=== PATIENT | male | born 1995 ===

== ENCOUNTER 2017-09-09 19:05 | Emergency (ER) | payer SELFPAY ==
[2017-09-09 19:41] VITALS: RESP 16; TEMP 98.6
[2017-09-09 19:45] LABS: BASO # 0.1 K/uL (0.0-0.2); BASO % 0.6 % (0.0-2.0); HEMATOCRIT 47.6 % (35.0-51.0); LYMPH # 1.4 K/uL (1.0-4.3); LYMPH % 13.6 % (20.0-40.0); MEAN CELL VOLUME 92.3 fl (80.0-94.0); MEAN CORPUSCULAR HEMOGLOBIN 31.3 pg (27.0-31.0); MEAN CORPUSCULAR HGB CONC 33.9 g/dL (33.0-37.0); MEAN PLATELET VOLUME 8.4 fl (7.2-11.7); MONO # 0.3 K/uL (0.0-0.8); MONO % 2.5 % (0.0-10.0); NEUT # 8.7 K/uL (1.8-7.0); NEUT % 83.3 % (50.0-75.0); RED CELL DISTRIBUTION WIDTH 13.2 % (11.5-14.5); WHITE BLOOD COUNT 10.4 K/uL (4.8-10.8)
[2017-09-09 19:49] LABS: RBC URINE < 1 /hpf (0-3); URINE BILIRUBIN NEGATIVE (NEGATIVE); URINE BLOOD NEGATIVE (NEGATIVE); URINE COLOR YELLOW (YELLOW); URINE GLUCOSE (UA) NEG (Normal); URINE KETONE NEGATIVE (NEGATIVE); URINE LEUKOCYTE ESTERASE NEG Leu/uL (Negative); URINE PROTEIN NEGATIVE (NEGATIVE); URINE UROBILINOGEN 0.2-1.0 mg/dL (0.2-1.0); WBC URINE < 1 /hpf (0-5)
[2017-09-09 19:55] LABS: ALB/GLOB RATIO 1.6 (1.0-2.1); ALCOHOL SERUM 203 mg/dl (0-10); ALKALINE PHOSPHATASE 89 U/L (38-126); ALT/SGPT 45 U/L (21-72); AST/SGOT 55 U/L (17-59); BILIRUBIN,TOTAL 0.3 mg/dl (0.2-1.3); BLOOD UREA NITROGEN 9 mg/dl (9-20); CALCIUM 9.3 mg/dL (8.4-10.2); CARBON DIOXIDE 27 mmol/L (22-30); CHLORIDE 108 mmol/L (98-107); GFR AFRICAN-AMERICAN > 60; GLUCOSE,RANDOM 110 mg/dL (75-110); POTASSIUM 3.8 MMOL/L (3.6-5.0); SODIUM 148 mmol/l (132-148); TOTAL PROTEIN 7.6 G/DL (6.3-8.2)
[2017-09-09] MEDS ORDERED: Sodium Chloride 0.9% 1,000 ML IV STA (20:15)
--- NOTE | 2017-09-09 20:17 | CT ---
EXAM: CT Head Without Intravenous Contrast CLINICAL HISTORY: 22 years old, male; Signs and symptoms; Altered mental status/memory loss; Other: Poss substance abuse; Patient HX: Unobtainable; Additional info: AMS TECHNIQUE: Axial computed tomography images of the head/brain without intravenous contrast. All CT scans at this facility use one or more dose reduction techniques, viz.: automated exposure control; ma/kV adjustment per patient size (including targeted exams where dose is matched to indication; i.e. head); or iterative reconstruction technique. Coronal and sagittal reformatted images were created and reviewed. COMPARISON: No relevant prior studies available. FINDINGS: Brain: No intracranial hemorrhage. No mass. No definite edema. Ventricles: No hydrocephalus. Bones/joints: No acute fracture. Soft tissues: Unremarkable. Sinuses: No acute sinusitis. Mastoid air cells: No mastoid effusion. Orbits: Unremarkable as visualized. IMPRESSION: 1. No acute intracranial abnormality.
--- NOTE | 2017-09-09 21:02 | ED PDOC ---
HPI: Altered Mental Status Time Seen by Provider: 09/09/17 19:18 Chief Complaint (Nursing): Altered Mental Status Chief Complaint (Provider): Altered Mental Status History Per: Family () History/Exam Limitations: Intoxication Onset/Duration Of Symptoms: Mins (prior to arrival) Current Symptoms Are (Timing): Still Present Additional Complaint(s): 22 year old male who presents to the emergency department via EMS with for an evaluation after found him unresponsive prior to arrival. She also reported that patient has been drinking alcohol all day. PMD: none provided Past Medical History Reviewed: Historical Data, Nursing Documentation, Vital Signs Vital Signs: Last Vital Signs Temp 98.6 F 09/09/17 19:16 Pulse 95 H 09/09/17 19:16 Resp 16 09/09/17 19:16 BP 129/90 09/09/17 19:16 Pulse Ox 97 09/09/17 19:16 - Medical History PMH: No Chronic Diseases - Surgical History Surgical History: No Surg Hx - Family History Family History: States: Unknown Family Hx - Social History Current smoker - smoking cessation education provided: No Alcohol: > 2 Drinks/Day Drugs: Denies - Allergies Allergies/Adverse Reactions: Allergies Allergy/AdvReac Type Severity Reaction Status Date / Time Unobtainable Allergy Verified 09/09/17 19:15 Review of Systems Review Of Systems: ROS cannot be obtained secondary to pt's inabilty to answer questions. (AMS) Physical Exam - Reviewed Nursing Documentation Reviewed: Yes Vital Signs Reviewed: Yes - Physical Exam Appears: Positive for: Well, Non-toxic, No Acute Distress Head Exam: Positive for: ATRAUMATIC, NORMAL INSPECTION, NORMOCEPHALIC Skin: Positive for: Normal Color Eye Exam: Positive for: Normal appearance, EOMI, PERRL. Negative for: Nystagmus Neck: Positive for: Normal, Painless ROM, Supple. Negative for: Decreased ROM, Limited ROM Cardiovascular/Chest: Positive for: Regular Rate, Rhythm, Chest Non Tender Respiratory: Positive for: Normal Breath Sounds. Negative for: Decreased Breath Sounds, Wheezing, Respiratory Distress Neurologic/Psych: Positive for: Alert - Laboratory Results Result Diagrams: 09/09/17 19:38 09/09/17 19:38 - ECG O2 Sat by Pulse Oximetry: 97 (RA) Pulse Ox Interpretation: Normal Medical Decision Making Medical Decision Making: Initial Impression: Altered mental status in setting of alcohol abuse Initial Plan: * CT head without contrast * EKG * Alcohol serum * CMP * Drug screen, urine * CBC * NS 1,000ml IV per 1,000mls/hr * Accucheck * Urinary straight catheterization * Urinalysis Time: 2017 --CT head FINDINGS: Brain: No intracranial hemorrhage. No mass. No definite edema. Ventricles: No hydrocephalus. Bones/joints: No acute fracture. Soft tissues: Unremarkable. Sinuses: No acute sinusitis. Mastoid air cells: No mastoid effusion. Orbits: Unremarkable as visualized. IMPRESSION: 1. No acute intracranial abnormality. Scribe Attestation: Documented by Tressa Sibley, acting as a scribe for Laura Webb MD. Provider Scribe Attestation: All medical record entries made by the Scribe were at my direction and personally dictated by me. I have reviewed the chart and agree that the record accurately reflects my personal performance of the history, physical exam, medical decision making, and the department course for this patient. I have also personally directed, reviewed, and agree with the discharge instructions and disposition. Disposition - Clinical Impression Clinical Impression: Alcohol abuse, Cocaine abuse - Disposition Disposition: Routine/Home Disposition Time: 22:00 Condition: STABLE Instructions: Cocaine Abuse (ED), Alcohol Intoxication (ED) Forms: [employer] (Cape Verdean)
[2017-09-09 22:33] VITALS: BP 108/40; PULSE 84
--- NOTE | 2017-09-10 11:13 | CARD ---
APPROVED REPORT EKG Measurement Heart [id number] <Conclusion> Normal sinus rhythm Normal ECG
[2017-09-14 03:54] VITALS: O2SAT 97
== END 2017-09-09 22:34 | disposition home or self-care (01) ==
LOC: H.ER 19:05 → EDSEX 19:05 → H.ER 22:34
DX: F10.10 Alcohol abuse, uncomplicated (principal); F14.10 Cocaine abuse, uncomplicated
CPT/HCPCS: 70450; 80053; 81003; 82948; 85025; 93005; 96360; 99285; G0480; J7040

== ENCOUNTER 2017-09-26 01:41 | Emergency (ER) | payer SELFPAY ==
[2017-09-26] MEDS ORDERED: Ammonia 2% Inhalant ONE ×2 (01:51→04:44)
[2017-09-26 03:00] LABS: BASO # 0.1 K/uL (0.0-0.2); BASO % 0.6 % (0.0-2.0); EOS % 0.2 % (0.0-4.0); HEMATOCRIT 46.9 % (35.0-51.0); LYMPH # 1.1 K/uL (1.0-4.3); MEAN CELL VOLUME 91.7 fl (80.0-94.0); MEAN CORPUSCULAR HGB CONC 33.8 g/dL (33.0-37.0); MEAN PLATELET VOLUME 8.9 fl (7.2-11.7); MONO # 0.3 K/uL (0.0-0.8); MONO % 3.3 % (0.0-10.0); NEUT # 7.6 K/uL (1.8-7.0); NEUT % 83.9 % (50.0-75.0); NRBC % 0.1 % (0.0-0.0)
[2017-09-26] MEDS ORDERED: Sodium Chloride 0.9% 1,000 ML IV STA ×3 (03:11→04:10)
[2017-09-26 03:12] LABS: ALB/GLOB RATIO 1.7 (1.0-2.1); ALCOHOL SERUM 194 mg/dl (0-10); ALKALINE PHOSPHATASE 91 U/L (38-126); ALT/SGPT 43 U/L (21-72); AST/SGOT 52 U/L (17-59); BILIRUBIN,TOTAL 0.4 mg/dl (0.2-1.3); BLOOD UREA NITROGEN 12 mg/dl (9-20); CALCIUM 9.2 mg/dL (8.4-10.2); CARBON DIOXIDE 24 mmol/L (22-30); CHLORIDE 105 mmol/L (98-107); GFR AFRICAN-AMERICAN > 60; GLUCOSE,RANDOM 120 mg/dL (75-110); POTASSIUM 3.4 MMOL/L (3.6-5.0); SODIUM 141 mmol/l (132-148); TOTAL PROTEIN 7.5 G/DL (6.3-8.2)
[2017-09-26 03:20] LABS: RBC URINE 1 /hpf (0-3); URINE BACTERIA RARE (<OCC); URINE BILIRUBIN NEGATIVE (NEGATIVE); URINE BLOOD NEGATIVE (NEGATIVE); URINE COLOR STRAW (YELLOW); URINE GLUCOSE (UA) NEG (Normal); URINE KETONE NEGATIVE (NEGATIVE); URINE LEUKOCYTE ESTERASE NEG Leu/uL (Negative); URINE PROTEIN NEGATIVE (NEGATIVE); URINE UROBILINOGEN 0.2-1.0 mg/dL (0.2-1.0); WBC URINE 1 /hpf (0-5)
--- NOTE | 2017-09-26 04:06 | ED PDOC ---
HPI: Psych/Substance Abuse Time Seen by Provider: 09/26/17 02:02 Chief Complaint (Nursing): Substance Abuse Chief Complaint (Provider): Intoxicated ED Caveat: Intoxicated History Per: Patient History/Exam Limitations: intoxication Onset/Duration Of Symptoms: Mins (just prior to arrival) Current Symptoms Are (Timing): Still Present Additional Complaint(s): 22y/o male, brought in by EMS, for suspected substance abuse, onset just prior to arrival. Patient is responsive to pain, but is non verbal. Provider is unable to obtain any pertinent history or review of systems. [ End ] Past Medical History Reviewed: Historical Data, Nursing Documentation, Vital Signs, Unable To Obtain (intoxicated) Vital Signs: Last Vital Signs Temp 98.2 F 09/26/17 01:43 Pulse 84 09/26/17 01:43 Resp 15 09/26/17 01:43 BP 125/62 09/26/17 01:43 Pulse Ox 98 09/26/17 01:43 - Family History Family History: States: Unknown Family Hx - Allergies Allergies/Adverse Reactions: Allergies Allergy/AdvReac Type Severity Reaction Status Date / Time No Known Allergies Allergy Verified 09/26/17 04:22 Review of Systems ROS Statement: Except As Marked, All Systems Reviewed And Found Negative Review Of Systems: ROS cannot be obtained secondary to pt's inabilty to answer questions. (intoxication) Physical Exam - Reviewed Nursing Documentation Reviewed: Yes Vital Signs Reviewed: Yes - Physical Exam Appears: Positive for: Non-toxic, No Acute Distress Head Exam: Positive for: ATRAUMATIC Skin: Positive for: Normal Color, Warm Eye Exam: Positive for: Normal appearance, EOMI, PERRL ENT: Positive for: Normal ENT Inspection Neck: Positive for: Normal, Painless ROM, Supple Cardiovascular/Chest: Positive for: Regular Rate, Rhythm. Negative for: Murmur Respiratory: Positive for: Normal Breath Sounds. Negative for: Respiratory Distress Gastrointestinal/Abdominal: Positive for: Normal Exam, Soft. Negative for: Tenderness Back: Positive for: Normal Inspection Extremity: Positive for: Normal ROM. Negative for: Pedal Edema, Deformity Neurologic/Psych: Positive for: Other ( Patient is responsive to pain, but non verbal. ) - Laboratory Results Result Diagrams: 09/26/17 02:56 09/26/17 02:56 - ECG O2 Sat by Pulse Oximetry: 98 (RA) Pulse Ox Interpretation: Normal Medical Decision Making Medical Decision Making: Time: --02:03 Impression: --Intoxication, Possible Substance Abuse Plan: --ECG --Iv Fluids --Heplock Insertion --Accucheck --Dickinson Reassess --04:41 FINDINGS:CT Head Without Intravenous Contrast Brain: No intracranial hemorrhage. No mass. No definite edema. Ventricles: No hydrocephalus. Bones/joints: No acute fracture. Soft tissues: Unremarkable. Sinuses: No acute sinusitis. Mastoid air cells: No mastoid effusion. Orbits: Unremarkable as visualized. IMPRESSION: 1. No definite acute intracranial abnormality. --05:36 Patient is awake alert oriented x3. Provider spoke with patient at length due to the patient's presence for alcohol intoxication for second time in two weeks Patient to be discharged home accompanied by uncle. Scribe Attestation: Documented by Jabier Macdonald acting as a scribe for Koffi Doherty MD. Disposition - Clinical Impression Clinical Impression: Alcohol abuse - Patient ED Disposition Is Patient to be Admitted: No - Disposition Disposition: Routine/Home Disposition Time: 05:36 Condition: STABLE Instructions: Alcohol Intoxication (ED) Forms: [employer] (Finnish) Print Language: EQUATORIAL GUINEAN
--- NOTE | 2017-09-26 04:42 | CT ---
EXAM: CT Head Without Intravenous Contrast CLINICAL HISTORY: 22 years old, male; Signs and symptoms; Alteration of consciousness; Somnolence (drowsiness); Additional info: AMS TECHNIQUE: Axial computed tomography images of the head/brain without intravenous contrast. All CT scans at this facility use one or more dose reduction techniques, viz.: automated exposure control; ma/kV adjustment per patient size (including targeted exams where dose is matched to indication; i.e. head); or iterative reconstruction technique. Coronal and sagittal reformatted images were created and reviewed. COMPARISON: CT - HEAD W/O CONTRAST 2017-09-09 19:45 FINDINGS: Brain: No intracranial hemorrhage. No mass. No definite edema. Ventricles: No hydrocephalus. Bones/joints: No acute fracture. Soft tissues: Unremarkable. Sinuses: No acute sinusitis. Mastoid air cells: No mastoid effusion. Orbits: Unremarkable as visualized. IMPRESSION: 1. No definite acute intracranial abnormality.
[2017-09-26 05:06] LABS: VENOUS BLOOD GAS BASE EXCESS -2.9 mmol/L (0.0-2.0); VENOUS BLOOD GAS PCO2 47 mmHg (40-60); VENOUS BLOOD PH 7.31 (7.32-7.43)
[2017-09-26 05:36] VITALS: BP 111/55; PULSE 95; RESP 18; TEMP 98.5
[2017-09-26 05:46] VITALS: O2SAT 98
--- NOTE | 2017-09-27 11:27 | CARD ---
APPROVED REPORT EKG Measurement Heart [id number] <Conclusion> Normal sinus rhythm Nonspecific ST abnormality Abnormal ECG
== END 2017-09-26 05:37 | disposition home or self-care (01) ==
LOC: H.ER 01:41
DX: F10.129 Alcohol abuse with intoxication, unspecified (principal); Y90.6 Blood alcohol level of 120-199 mg/100 ml
CPT/HCPCS: 70450; 80053; 81003; 82803; 82948; 85025; 93005; 99284; G0480; J7040

== ENCOUNTER 2018-01-17 18:15 | Emergency (ER) | payer OTHER ==
[2018-01-17] MEDS ORDERED: Sodium Chloride 0.9% 1,000 ML IV STA (19:22)
[2018-01-17 20:09] LABS: VENOUS BLOOD GAS BASE EXCESS 3.5 mmol/L (0.0-2.0); VENOUS BLOOD GAS PCO2 35 mmHg (40-60); VENOUS BLOOD GAS PO2 22 mm/Hg (30-55); VENOUS BLOOD PH 7.49 (7.32-7.43)
[2018-01-17 20:22] LABS: BASO % 0.3 % (0.0-2.0); EOS % 0.6 % (0.0-4.0); LYMPH # 0.5 K/uL (1.0-4.3); LYMPH % 6.8 % (20.0-40.0); MEAN CELL VOLUME 89.5 fl (80.0-94.0); MEAN CORPUSCULAR HEMOGLOBIN 31.8 pg (27.0-31.0); MEAN CORPUSCULAR HGB CONC 35.5 g/dL (33.0-37.0); MONO # 0.7 K/uL (0.0-0.8); MONO % 9.6 % (0.0-10.0); NEUT # 6.5 K/uL (1.8-7.0); NEUT % 82.7 % (50.0-75.0); NRBC % 0.1 % (0.0-0.0); PLATELET COUNT 213 K/uL (130-400); RBC 5.03 Mil/uL (4.40-5.90); RED CELL DISTRIBUTION WIDTH 13.4 % (11.5-14.5); WHITE BLOOD COUNT 7.8 K/uL (4.8-10.8)
--- NOTE | 2018-01-17 20:23 | ED PDOC ---
HPI: Abdomen Time Seen by Provider: 01/17/18 19:21 Chief Complaint (Nursing): Abdominal Pain Chief Complaint (Provider): Abdominal pain History Per: Patient History/Exam Limitations: no limitations Onset/Duration Of Symptoms: Hrs (3am today) Outside of [place] travel?: No Current Symptoms Are (Timing): Still Present Quality Of Discomfort: Cramping Associated Symptoms: Fever, Chills, Vomiting, Diarrhea (watery, non bloody), Other (body aches, headache, sore throat, mild cough and generalized weakness) Additional Complaint(s): Srinivasan Horn is a 22 year old male, with no significant past medical history , who presents to the emergency department complaining of crampy abdominal pain associated with vomiting and diarrhea onset since 3:00 pm today. Patient reports intractable vomiting, with multiple episodes of non bloody watery diarrhea. Patient also reports fever, chills, headache, body aches, headache, sore throat, mild cough and generalized weakness. No known sick contacts, recent travel, or recent antibiotics. Patient is from [facility] and has been here for 7 yrs, with no regular MD. He denies any other medical complaints. PMD: None provided. Past Medical History Reviewed: Historical Data, Nursing Documentation, Vital Signs Vital Signs: Last Vital Signs Temp 98.0 F 01/17/18 22:02 Pulse 88 01/17/18 22:02 Resp 17 01/17/18 22:02 BP 101/53 L 01/17/18 22:02 Pulse Ox 95 01/17/18 22:02 - Medical History PMH: No Chronic Diseases - Surgical History Surgical History: No Surg Hx - Family History Family History: States: Unknown Family Hx - Social History Current smoker - smoking cessation education provided: No Alcohol: Social (on weekends) Drugs: Denies - Home Medications Home Medications: Ambulatory Orders Medication Instructions Recorded Dicyclomine [Bentyl] 20 mg PO BID PRN #30 tab 01/17/18 Ondansetron ODT [Zofran ODT] 1 odt PO Q6 PRN #20 odt 01/17/18 - Allergies Allergies/Adverse Reactions: Allergies Allergy/AdvReac Type Severity Reaction Status Date / Time No Known Allergies Allergy Verified 01/17/18 18:26 Review of Systems ROS Statement: Except As Marked, All Systems Reviewed And Found Negative Constitutional: Positive for: Fever, Chills, Weakness (generalized), Other ( body aches) ENT: Positive for: Throat Pain Respiratory: Positive for: Cough (mild) Gastrointestinal: Positive for: Vomiting, Abdominal Pain (crampy), Diarrhea ( watery non bloody) Neurological: Negative for: Headache Physical Exam - Reviewed Nursing Documentation Reviewed: Yes Vital Signs Reviewed: Yes - Physical Exam Appears: Positive for: Uncomfortable (febrile), In Acute Distress. Negative for : Well Head Exam: Positive for: ATRAUMATIC, NORMOCEPHALIC Skin: Positive for: Normal Color, Warm, Dry Eye Exam: Positive for: EOMI, PERRL, Conjunctival injection ENT: Positive for: Pharynx Is (clear). Negative for: Pharyngeal Erythema, Tonsillar Exudate Neck: Positive for: Painless ROM Cardiovascular/Chest: Positive for: Tachycardia. Negative for: Murmur Respiratory: Positive for: Normal Breath Sounds. Negative for: Wheezing, Respiratory Distress Gastrointestinal/Abdominal: Positive for: Soft, Tenderness (diffusely ). Negative for: Mass, Guarding, Rebound Back: Positive for: Normal Inspection. Negative for: Decreased ROM Extremity: Positive for: Normal ROM. Negative for: Deformity, Swelling Lymphatic: Negative for: Adenopathy Neurologic/Psych: Positive for: Alert, Oriented. Negative for: Motor/Sensory Deficits - Laboratory Results Result Diagrams: 01/17/18 20:16 01/17/18 20:16 - ECG O2 Sat by Pulse Oximetry: 100 (RA) Pulse Ox Interpretation: Normal Medical Decision Making Medical Decision Making: Initial Impression: Sepsis, dehydration, gastroenteritis. Differential includes but not limited to influenza, strep, electrolyte abnormality. Initial Plan: --Labs --Dextrose 5%-0.9% NS 500 ml 1,000 ml IV 150 mls/hr --Sodium Chloride 1,000 ml IV 2,000 mls/hr --Toradol 15 mg IVP --Tylenol 325mg tab 975 mg PO --Zofran ODT 4 mg PO --Reevaluation Ketones in ua. No emergently significant lab abnormalities 11p Pt feels better. Tolerating PO in ER. DW pt findings and plan of care. Will treat as gastroenteritis for now but strict instructions to f/u at clinic or [facility] in 48 hours if symptoms persist or worsen. Fluid hydration aggressively but slowly at home. Lane diet. Rx Bentyl, Zofran. Scribe Attestation: Documented by Too Chang, acting as a scribe for Laura Webb MD Provider Scribe Attestation: All medical record entries made by the Scribe were at my direction and personally dictated by me. I have reviewed the chart and agree that the record accurately reflects my personal performance of the history, physical exam, medical decision making, and the department course for this patient. I have also personally directed, reviewed, and agree with the discharge instructions and disposition. Disposition - Clinical Impression Clinical Impression: Vomiting and diarrhea, Abdominal pain Counseled Patient/Family Regarding: Studies Performed, Diagnosis, Need For Followup, Rx Given - Disposition Referrals: [facility] [Outside] ([facility]) Disposition: Routine/Home Disposition Time: 23:00 Condition: IMPROVED Prescriptions: Dicyclomine [Bentyl] 20 mg PO BID PRN #30 tab PRN Reason: abdominal pain Ondansetron ODT [Zofran ODT] 1 odt PO Q6 PRN #20 odt PRN Reason: Nausea/Vomiting Instructions: Acute Abdomen (Belly Pain), Viral Gastroenteritis Forms: [facility] ED School/Work Excuse Print Language: SETSWANA
[2018-01-17 20:34] LABS: ALB/GLOB RATIO 1.5 (1.0-2.1); ALBUMIN 4.5 g/dL (3.5-5.0); ALT/SGPT 58 U/L (21-72); AMYLASE 114 U/L (30-110); AST/SGOT 67 U/L (17-59); BLOOD UREA NITROGEN 20 mg/dl (9-20); CALCIUM 9.5 mg/dL (8.4-10.2); GFR AFRICAN-AMERICAN > 60; GFR NON-AFRICAN AMERICAN > 60; LIPASE 193 U/L (23-300)
[2018-01-17 20:42] LABS: INR 1.3 (0.9-1.2); PARTIAL THROMBOPLASTIN TIME 31.9 Seconds (25.6-37.1); PROTHROMBIN TIME 14.9 Seconds (9.8-13.1)
[2018-01-17] MEDS ORDERED: Dextrose 5%/0.9% NS 1,000 ML IV SCH (21:00)
[2018-01-17 21:17] LABS: BANDS 3 % (0-2); LYMPHOCYTE 9 % (20-50); MONOCYTE 6 % (0-10); NEUTROPHIL 82 % (42-75); PLATELET ESTIMATE NORMAL (NORMAL); TOTAL CELLS COUNTED 100
[2018-01-17 21:18] LABS: SMUDGE CELLS PRESENT
[2018-01-17 22:03] VITALS: RESP 17
[2018-01-17 22:25] LABS: URINE BACTERIA RARE (<OCC); URINE BILIRUBIN NEGATIVE (NEGATIVE); URINE BLOOD NEGATIVE (NEGATIVE); URINE CLARITY SLIGHTY-CLOUDY (Clear); URINE COLOR YELLOW (YELLOW); URINE GLUCOSE (UA) NEG (Normal); URINE LEUKOCYTE ESTERASE NEG Leu/uL (Negative); URINE PROTEIN 30 mg/dL (NEGATIVE); URINE UROBILINOGEN 0.2-1.0 mg/dL (0.2-1.0)
[2018-01-17 22:50] LABS: BARBITURATES, UR NEGATIVE (NEGATIVE); BENZODIAZEPINES, UR NEGATIVE (NEGATIVE); OPIATES, UR NEGATIVE (NEGATIVE); PHENCYCLIDINE, UR NEGATIVE (NEGATIVE)
[2018-01-17 23:49] VITALS: O2SAT 100
[2018-01-18 03:38] VITALS: BP 112/63; PULSE 84; TEMP 98.2
== END 2018-01-18 00:05 | disposition home or self-care (01) ==
LOC: H.ER 18:15
DX: K52.9 Noninfective gastroenteritis and colitis, unspecified (principal); R10.9 Unspecified abdominal pain
CPT/HCPCS: 80053; 80320; 80324; 80345; 80346; 80349; 80353; 80358; 80361; 81003; 82150; 82550; 82803; 83615; 83690; 83735; 83992; 84100; 85025; 85610; 85730; 87040; 87045; 87070; 87086; 87177; 87209; 87390; 87430; 87804; 96374; 99285; J1885; J7040; J7042